=== PATIENT | female | born 1960 | race Caucasian/White ===

== ENCOUNTER 2022-11-24 21:02 | Emergency (ER) | payer BC ==
[~2022-11-24] VITALS: Ht 152.4 cm; Wt 113.1 kg
[2022-11-24] MEDS ORDERED: HYDROMORPHONE 1 MG/1 ML DISP.SYRIN IV ONE ×2 (21:15→23:45)
[2022-11-24] MEDS ORDERED: CEFTRIAXONE 1 G in IV DEXTROSE 5% 50 ML IV ONE (21:15)
[2022-11-24] MEDS ORDERED: ONDANSETRON 4 MG/2 ML VIAL IV ONE (21:15)
[2022-11-24 21:26] LABS: BASOPHILS # (AUTO) 0.2 K/UL (0.0-0.2); BASOPHILS % (AUTO) 1.8 % (0.0-2.0); EOSINOPHILS # (AUTO) 0.2 K/uL (0.0-0.7); EOSINOPHILS % (AUTO) 1.7 % (0.0-7.0); HEMOGLOBIN 8.1 g/dL (10.9-14.3); LYMPHOCYTES # (AUTO) 1.2 K/uL (0.8-4.8); LYMPHOCYTES % (AUTO) 9.3 % (20.5-51.5); MEAN CORPUSCULAR HEMOGLOBIN 30.2 uug (24.7-32.8); MEAN CORPUSCULAR HGB CONC 34 g/dL (32.3-35.6); MEAN CORPUSCULAR VOLUME 89.9 fL (75.5-95.3); MONOCYTES # (AUTO) 0.4 K/uL (0.1-1.30); MONOCYTES % (AUTO) 3.3 % (0.0-11.0); NEUTROPHILS # (AUTO) 10.9 K/uL (1.8-8.9); NEUTROPHILS % (AUTO) 83.9 % (38.5-71.5); PLATELET COUNT (AUTO) 187 K/uL (179-408); RED BLOOD CELL COUNT(AUTO) 2.66 MIL/uL (3.63-4.92); RED CELL DISTRIBUTION WIDTH 15.2 % (12.3-17.7)
[2022-11-24 21:35] LABS: DIFFERENTIAL COMMENT 1
[2022-11-24] MEDS ORDERED: HYDROMORPHONE 1 MG/1 ML DISP.SYRIN ONE ×2 (21:43→23:42)
[2022-11-24] MEDS ORDERED: ONDANSETRON 4 MG/2 ML VIAL ONE (21:43)
[2022-11-24] MEDS ORDERED: CEFTRIAXONE /D5W 50ML IVPB **ER PYXIS IV ONE (21:43)
[2022-11-24 21:48] LABS: ALANINE AMINOTRANSFERASE 11 U/L (14-59); ALBUMIN 2.3 g/dL (3.4-5.0); ALKALINE PHOSPHATASE 78 U/L (50-136); ASPARTATE AMINOTRANSFERASE 40 U/L (15-37); BILIRUBIN,DIRECT 0.3 mg/dL (0.0-0.2); CALCIUM 8.8 mg/dL (8.5-10.1); CARBON DIOXIDE 31 mmol/L (21-32); CHLORIDE 100 mmol/L (98-107); CREATININE 1.9 mg/dL (0.6-1.3); GLUCOSE 131 mg/dL (74-106); LIPASE 333 U/L (73-393); POTASSIUM 4.4 mmol/L (3.5-5.1); SODIUM SERUM 134 mmol/L (136-145); TOTAL PROTEIN, SERUM 5.6 g/dL (6.4-8.2)
[2022-11-24 21:50] LABS: UREA NITROGEN, BLOOD 82 mg/dL (7-18)
[2022-11-24 22:13] LABS: *OCCULT BLOOD STOOL NEGATIVE (NEGATIVE)
[2022-11-24 22:18] LABS: *BILIRUBIN,URIN NEGATIVE (NEGATIVE); *BLOOD, URINE 3+ (NEGATIVE); *CLARITY,URINE CLEAR (CLEAR); *COLOR,URINE YELLOW (YELLOW); *KETONES,URINE NEGATIVE (NEGATIVE); *UROBILINOGEN,URINE 0.2 E.U./dl (NORMAL); LEUKOCYTE ESTERASE ,URINE NEGATIVE (NEGATIVE); NITRITE, URINE NEGATIVE (NEGATIVE); PH,URINE 5.5 (5.0-8.0); UGLUCOSE NEGATIVE (NEGATIVE)
[2022-11-24 22:20] LABS: *PROTEIN,URINE 3+ (NEGATIVE)
[2022-11-24 22:22] LABS: WBC,URINE 0-3 /HPF (0-3)
[2022-11-24] MEDS ORDERED: SEVE2.4P3 GT (22:25)
[2022-11-24] MEDS ORDERED: DOCU100T2 GT (22:25)
[2022-11-24] MEDS ORDERED: MULT237L4 GT (22:25)
[2022-11-24] MEDS ORDERED: L. A1TAB16 GT (22:25)
[2022-11-24] MEDS ORDERED: CHLO118L3 TP (22:25)
[2022-11-24] MEDS ORDERED: AMLO-212 GT (22:25)
[2022-11-24] MEDS ORDERED: atrovent INH (22:25)
[2022-11-24] MEDS ORDERED: ASCO500C18 GT (22:25)
[2022-11-24] MEDS ORDERED: GLUC1KIT IJ (22:25)
[2022-11-24] MEDS ORDERED: FERR220S16 PO (22:25)
[2022-11-24] MEDS ORDERED: CRAN450T9 GT (22:25)
[2022-11-24] MEDS ORDERED: PANT40TA49 GT (22:25)
[2022-11-24] MEDS ORDERED: LABE100T5 GT (22:25)
[2022-11-24] MEDS ORDERED: CHOL10005 PO (22:25)
[2022-11-24] MEDS ORDERED: ALBU2.5V13 IH (22:25)
[2022-11-24] MEDS ORDERED: MINO2.5T GT (22:25)
[2022-11-24] MEDS ORDERED: HYDR-894 GT (22:25)
[2022-11-24] MEDS ORDERED: TRIA60LO14 TP (22:25)
[2022-11-24] MEDS ORDERED: ACET-3117 GT (22:25)
[2022-11-24] MEDS ORDERED: POLY250017 GT (22:25)
[2022-11-24] MEDS ORDERED: zinc GT (22:25)
[2022-11-24] MEDS ORDERED: levoFLOXacin 500 MG/D5W 100 ML ONE (23:42)
[2022-11-24] MEDS ORDERED: VANCOMYCIN IV 200 ML ONE (23:42)
[2022-11-24] MEDS ORDERED: VANCOMYCIN IV 1,000 MG in IV DEXTROSE 5% 250 ML IV ONE (23:45)
[2022-11-24] MEDS ORDERED: levoFLOXacin 500 MG/D5W 100ML PIGGYBACK IV ONE (23:45)
[2022-11-25 04:23] VITALS: O2SAT 98
== END 2022-11-25 06:37 | disposition short-term general hospital (02) ==
LOC: ER 21:05
DX: S30.1XXA Contusion of abdominal wall, initial encounter (principal); D64.9 Anemia, unspecified; J18.9 Pneumonia, unspecified organism; J96.10 Chronic respiratory failure, unspecified whether with hypoxia or hypercapnia; Z99.11 Dependence on respirator [ventilator] status; Z79.899 Other long term (current) drug therapy; Z20.822 Contact with and (suspected) exposure to COVID-19; X58.XXXA Exposure to other specified factors, initial encounter; Y93.89 Activity, other specified; Y92.89 Other specified places as the place of occurrence of the external cause; Y99.8 Other external cause status
CPT/HCPCS: 99291; 71250; 96365; 76705; 71045; 96375; 96367 ×2; 82270; 80076; 80048; 81001; 83690; 85025; 85730; 86850; 86900; 86901; 87040 ×2; 84484; 36415 ×2; 74176; 83605; 87086; 93005; 96376; 96366; 87426; 82803; 36600; 31720; J0696; J1956; J2405; J3370; J1170 ×2; 94002; A4606; A4663; C1758